=== PATIENT | female | born 1955 | race Caucasian/White ===

== ENCOUNTER → 2017-10-11 | Outpatient (CLI) | payer MEDICARE ==
[2017-10-11 11:36] LABS: ABSOLUTE BASOPHILS # (AUTO) 0.1 10^3/uL (0.0-0.2); ABSOLUTE EOSINOPHILS # (AUTO) 0.2 10^3/uL (0.0-0.6); ABSOLUTE LYMPHOCYTES (AUTO) 1.8 10^3/uL (0.5-4.7); ABSOLUTE MONOCYTES (AUTO) 0.5 10^3/uL (0.1-1.4); ABSOLUTE NEUT (AUTO) 3.7 10^3/uL (1.7-8.2); BASOPHILS % (AUTO) 0.9 % (0-2); EOSINOPHILS % (AUTO) 3.3 % (0-6); HEMATOCRIT 37.6 % (36.0-47.0); HEMOGLOBIN 13.1 g/dL (12.0-15.5); LYMPHOCYTES % (AUTO) 28.4 % (13-45); MEAN CORPUSCULAR HEMOGLOBIN 31.6 pg (27.0-33.4); MEAN CORPUSCULAR HGB CONC 34.9 g/dL (32.0-36.0); MEAN CORPUSCULAR VOLUME 91 fl (80-97); MONOCYTES % (AUTO) 7.5 % (3-13); PLATELET COUNT 490 10^3/uL (150-450); RED BLOOD COUNT 4.15 10^6/uL (3.72-5.28); RED CELL DISTRIBUTION WIDTH 12.4 % (11.5-14.0); SEGMENTED NEUTROPHILS % (AUTO) 59.9 % (42-78); TOTAL CELLS COUNTED % (AUTO) 100 %; WHITE BLOOD COUNT 6.2 10^3/uL (4.0-10.5)
[2017-10-11 12:13] LABS: C-REACTIVE PROTEIN 37.7 mg/L (<10.0); URIC ACID 5.4 mg/dL (2.5-7.5)
[2017-10-11 12:16] LABS: ERYTHROCYTE SEDIMENTATION RATE 48 mm/hr (0-30)
[2017-10-13 13:45] LABS: CYCLIC CITRUL PEPTIDE IGG/A AB 5 units (0-19)
== END ==
LOC: OD 10:34
PROVIDERS: ATTEND Family Medicine
DX: R60.0 Localized edema (principal)
CPT/HCPCS: 36415; 82306; 84550; 85025; 85652; 86038; 86140; 86200; 86430

== ENCOUNTER → 2017-10-12 | Outpatient (CLI) | payer MEDICARE | LOC: OD 13:03 | PROVIDERS: ATTEND Family Medicine | DX: R22.41 Localized swelling, mass and lump, right lower limb (principal) | CPT/HCPCS: 36415; 83880; 85379 ==

== ENCOUNTER 2017-11-03 21:29 | Emergency (ER) | payer MEDICARE ==
[2017-11-04] MEDS ORDERED: ONDANSETRON 4 MG TAB.RAPDIS PO ONE (00:18)
[2017-11-04] MEDS ORDERED: LIDOCAINE 5% (700 MG) TRANSDERMAL ADH..PATCH TP ONE ×2 (00:23→02:30)
[2017-11-04] MEDS ORDERED: ACETAMINOPHEN 325 MG TABLET PO ONE (00:24)
[2017-11-04 00:31] LABS: ABSOLUTE BASOPHILS # (AUTO) 0.1 10^3/uL (0.0-0.2); ABSOLUTE EOSINOPHILS # (AUTO) 0.3 10^3/uL (0.0-0.6); ABSOLUTE LYMPHOCYTES (AUTO) 3.1 10^3/uL (0.5-4.7); ABSOLUTE MONOCYTES (AUTO) 0.7 10^3/uL (0.1-1.4); ABSOLUTE NEUT (AUTO) 3.7 10^3/uL (1.7-8.2); BASOPHILS % (AUTO) 0.9 % (0-2); EOSINOPHILS % (AUTO) 3.3 % (0-6); HEMATOCRIT 43.2 % (36.0-47.0); HEMOGLOBIN 14.8 g/dL (12.0-15.5); LYMPHOCYTES % (AUTO) 39.8 % (13-45); MEAN CORPUSCULAR HGB CONC 34.2 g/dL (32.0-36.0); MEAN CORPUSCULAR VOLUME 91 fl (80-97); MONOCYTES % (AUTO) 8.5 % (3-13); PLATELET COUNT 337 10^3/uL (150-450); RED BLOOD COUNT 4.77 10^6/uL (3.72-5.28); RED CELL DISTRIBUTION WIDTH 12.8 % (11.5-14.0); SEGMENTED NEUTROPHILS % (AUTO) 47.5 % (42-78); TOTAL CELLS COUNTED % (AUTO) 100 %; WHITE BLOOD COUNT 7.7 10^3/uL (4.0-10.5)
[2017-11-04 00:55] LABS: ANION GAP 14 (5-19); BLOOD UREA NITROGEN 13 mg/dL (7-20); CALCIUM 9.5 mg/dL (8.4-10.2); CARBON DIOXIDE 29 mmol/L (22-30); CHLORIDE 105 mmol/L (98-107); CREATINE KINASE 57 U/L (30-135); GLUCOSE 102 mg/dL (75-110); POTASSIUM 3.9 mmol/L (3.6-5.0); SODIUM 147.6 mmol/L (137-145)
--- NOTE | 2017-11-04 02:29 | RADIOLOGY REPORT (SQ) ---
EXAM DESCRIPTION: XR CHEST 2 VIEWS COMPLETED DATE/TME: 11/04/2017 00:23 CLINICAL HISTORY: 62 years Female, bilateral pain shoulders nausea COMPARISON: None. FINDINGS: Adequate lung volume, clear parenchyma, normal cardiac silhouette, right upper abdominal clips, and lower cervical hardware fusion. IMPRESSION: No acute cardiopulmonary findings.
--- NOTE | 2017-11-04 02:31 | RADIOLOGY REPORT (SQ) ---
EXAM DESCRIPTION: XR SHOULDER 2 OR MORE VIEWS BILATERAL COMPLETED DATE/TME: 11/04/2017 00:23 CLINICAL HISTORY: 62 years Female, bilateral pain shoulders nausea COMPARISON: None. Findings: Atherosclerosis. Bones, joints, and soft tissues of the XR SHOULDER 6 VIEWS BILATERAL appear otherwise intact. IMPRESSION: No acute findings.
--- NOTE | 2017-11-04 02:35 | ER Document Report ---
ED General - General Chief Complaint: Shoulder Pain Stated Complaint: SHOULDER PAIN Time Seen by Provider: 11/04/17 00:02 TRAVEL OUTSIDE OF THE [place] IN LAST 30 DAYS: No - HPI Patient complains to provider of: Bilateral shoulder pain nausea Notes: Patient coming in for bilateral shoulder pain and nausea states intermittent over the last 3-4 days. Patient states tonight was unable to get comfortable in bed patient does have a prescription for Vicodin from her local PCP states she took one however her pain continued therefore came to the ER for evaluation. Patient states aching feeling. Patient denies any vomiting diarrhea fevers chills chest pain or weakness. Patient states pain is increased with movement denies any new physical activities. Patient otherwise resting company nontoxic looking upon my evaluation states pain is more aching in sensation - Related Data Allergies/Adverse Reactions: amoxicillin Allergy (Verified 11/03/17 21:45) iodine povacrylex [From DuraPrep] Allergy (Verified 11/03/17 21:45) isopropyl alcohol [From DuraPrep] Allergy (Verified 11/03/17 21:45) Past Medical History - Social History Smoking Status: Former Smoker Chew tobacco use (# tins/day): No Frequency of alcohol use: Social Drug Abuse: None Family History: Reviewed & Not Pertinent Patient has suicidal ideation: No Patient has homicidal ideation: No - Past Medical History Cardiac Medical History: Reports: Hx Hypercholesterolemia Renal/ Medical History: Denies: Hx Peritoneal Dialysis Past Surgical History: Reports: Hx Cholecystectomy, Hx Hysterectomy Review of Systems - Review of Systems Constitutional: No symptoms reported EENT: No symptoms reported Cardiovascular: No symptoms reported Respiratory: No symptoms reported Gastrointestinal: Nausea Genitourinary: No symptoms reported Female Genitourinary: No symptoms reported Musculoskeletal: Other - Bilateral shoulder pain Skin: No symptoms reported Hematologic/Lymphatic: No symptoms reported Neurological/Psychological: No symptoms reported -: Yes All other systems reviewed and negative Physical Exam - Vital signs Vitals: Temp Pulse Resp BP Pulse Ox 98.8 F 80 18 138/65 H 99 11/03/17 21:49 11/03/17 21:49 11/03/17 21:49 11/03/17 21:49 11/03/17 21:49 Interpretation: Normal - General General appearance: Appears well, Alert - HEENT Head: Normocephalic, Atraumatic Eyes: Normal Pupils: PERRL - Respiratory Respiratory status: No respiratory distress Chest status: Nontender Breath sounds: Normal Chest palpation: Normal - Cardiovascular Rhythm: Regular Heart sounds: Normal auscultation Murmur: No - Abdominal Inspection: Normal Distension: No distension Bowel sounds: Normal Tenderness: Nontender Organomegaly: No organomegaly - Back Back: Normal, Nontender - Extremities General upper extremity: Normal inspection, Nontender, Normal color, Normal ROM , Normal temperature General lower extremity: Normal inspection, Nontender, Normal color, Normal ROM , Normal temperature, Normal weight bearing. No: Gus's sign - Neurological Neuro grossly intact: Yes Cognition: Normal Orientation: AAOx4 [place] Coma Scale Eye Opening: Spontaneous [place] Coma Scale Verbal: Oriented [place] Coma Scale Motor: Obeys Commands April Coma Scale Total: 15 Speech: Normal Motor strength normal: LUE, RUE, LLE, RLE Sensory: Normal - Psychological Associated symptoms: Normal affect, Normal mood - Skin Skin Temperature: Warm Skin Moisture: Dry Skin Color: Normal Course - Re-evaluation Re-evalutation: 11/04/17 06:00 Patient laboratory studies not reveal any significant pathology. Chest x-rays otherwise is negative for acute pathology. Patient did receive good pain relief with lidocaine patch placed on the neck. Patient initially did not reveal that she has cervical fusion in the past however is seen on the x-ray. Possible etiology for her bilateral neck pain neurologically intact no other concerning etiology EKG looks to be within normal limits troponins negative. Patient will be discharged home instructions to use Tylenol and lidocaine patches. Patient states currently cannot take any anti-inflammatories is that she has a colonoscopy scheduled earlier next week - Vital Signs Vital signs: Temp Pulse Resp BP Pulse Ox 97.5 F 65 18 141/67 H 98 11/04/17 02:48 11/04/17 02:48 11/03/17 21:49 11/04/17 02:48 11/04/17 02:48 - Laboratory Result Diagrams: 11/04/17 00:20 11/04/17 00:20 Laboratory results interpreted by me: 11/04/17 00:20 Sodium 147.6 H Discharge - Discharge Clinical Impression: Nausea Bilateral shoulder pain Qualifiers: Chronicity: acute Qualified Code(s): M25.511 - Pain in right shoulder Condition: Good Disposition: HOME, SELF-CARE Instructions: Arthralgia ([facility]), Nausea or Vomiting, Nonspecific ([facility]), Exercise Program for the Shoulder ([facility]) Additional Instructions: Follow-up with your primary care physician. Return to ER if symptoms worsen. Take medications as prescribed. We recommend taking thousand milligrams of Tylenol 3-4 times a day for your pain along with the lidocaine patches. If she cannot afford lidocaine patches prescribed they are available [id number] please discuss this with your pharmacist. Prescriptions: Lidocaine [Lidoderm] 1 each TP DAILY #30 adh..patch Referrals: RITU DERAS MD [Primary Care Provider] - Follow up in 3-5 days
[2017-11-04 02:56] VITALS: BP 141/67
--- NOTE | 2017-11-04 09:58 | EKG REPORT ---
SEVERITY:- BORDERLINE ECG - SINUS RHYTHM BORDERLINE INFERIOR Q WAVES : Confirmed by: Maggie Patterson 04-Nov-2017 09:57:16
== END 2017-11-04 02:56 | disposition home or self-care (01) ==
LOC: ER 21:29
DX: M25.511 Pain in right shoulder (principal); M25.512 Pain in left shoulder; R11.0 Nausea; Z87.891 Personal history of nicotine dependence
CPT/HCPCS: 93005; 99284; 36415; 82550; 85025; 80048; 84484; 71046; 73030; 93010; A9270 ×2; S0119